=== PATIENT | male | born 2005 | race Two or more races ===

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

== ENCOUNTER 2024-01-03 14:42 | Emergency (ER) | payer BC, MEDICAID ==
[~2024-01-03] VITALS: Ht 170.2 cm; Wt 80.0 kg
--- NOTE | 2024-01-03 15:33 | ED.PDOC ---
Psychiatric HPI Comments A 18 year old presents to the ED with a chief complaint of chest pain and anxiety. Sister states the patient was experiencing confusion and unclear thinking for the past 4 days. Patient lives in [facility] dorms and drove himself to his mother's house due to not feeling well. Sister took the patient's blood pressure this morning and states it was low. The patient states he was drinking ETOH on 12/30/2023. He also states he is currently experiencing chest pain, anxiety, confusion, paranoia, auditory hallucinations, blurry vision, and hard time communicating. He has a past medical history of asthma and anxiety. No other symptoms or other modifying factors present at this time. Chief Complaint: Chest Pain Time Seen by MD: 15:05 Primary Care Provider: UNKNOWN Reviewed Notes: Medications, Allergies Information Source: Patient, Relative (Sibling) Mode of Arrival: Ambulatory Severity of Pain: Moderate Severity of Mental Status: Moderate Severity of Symptoms: Moderate Timing: Days Duration: Since onset Prehospital treatment: Other Presents with: Anxiety, Unclear Thinking History of: Anxiety Quality: Confusion, Hallucinations (auditory) Associated signs and symptoms: Anxiety, Hallucinations, ETOH, Confusion, Other (chest pain) Past Medical History PAST MEDICAL HISTORY: Anxiety, Asthma Surgical History: Denies all surgeries Family History Family History: Family hx of DM, Family hx of Cancer, Family hx of heart addison Social History Smoker: Non-Smoker Alcohol: Occasionally Drugs: Denies Drug Use Lives In: Home Constitutional: denies: chills, diaphoresis, fatigue, fever, malaise, sweats, weakness, others EENTM: denies: blurred vision, double vision, ear bleeding, ear discharge, ear drainage, ear pain, ear ringing, eye pain, eye redness, hearing loss, mouth pain, mouth swelling, nasal discharge, nose bleeding, nose congestion, nose pain, photophobia, tearing, throat pain, throat swelling, voice changes, others Respiratory: denies: cough, hemoptysis, orthopnea, SOB at rest, shortness of breath, SOB with excertion, stridor, wheezing, others Cardiovascular: denies: chest pain, dizzy spells, diaphoresis, Dyspnea on exertion, edema, irregular heart beat, left arm pain, lightheadedness, palpitations, PND, syncope, others Gastrointestinal: denies: abdomen distended, abdominal pain, blood streaked bowels, constipated, diarrhea, dysphagia, difficulty swallowing, hematemesis, melena, nausea, poor appetite, poor fluid intake, rectal bleeding, rectal pain, vomiting, others Genitourinary: denies: burning, dysuria, flank pain, frequency, hematuria, incontinence, penile discharge, penile sore, pain, testicle pain, testicle swelling, urgency, others Neurological: denies: dizziness, fainting, headache, left sided numbness, left sided weakness, numbness, paresthesia, pre-existing deficit, right sided numbness, right sided weakness, seizure, speech problems, tingling, tremors, weakness, others Musculoskeletal: denies: back pain, gout, joint pain, joint swelling, muscle pain, muscle stiffness, neck pain, others Integumetry: denies: bruises, change in color, change in hair/nails, dryness, laceration, lesions, lumps, rash, wounds, others Allergic/Immunocompromised: denies: Difficulty Healing, Frequent Infections, Hives, Itching, others Hematologic/Lymphatic: denies: anemia, blood clots, easy bleeding, easy bruising, swollen glands, others Endocrine: denies: excessive hunger, excessive sweating, excessive thirst, excessive urination, flushing, intolerance to cold, intolerance to heat, unexplained weight gain, unexplained weight loss, others Psychiatric: denies: anxiety, bipolar disorder, depression, hopeless, panic disorder, schizophrenia, sleepless, suicidal, others All Other Systems: Reviewed and Negative Physical Exam General Appearance: No Apparent Distress HEENT: Normal ENT Inspection, Pharynx Normal, TMs Normal Neck: Full Range of Motion, Non-Tender, Normal, Normal Inspection Respiratory: Chest Non-Tender, Lungs Clear, No Accessory Muscle Use, No Respiratory Distress, Normal Breath Sounds Cardiovascular: No Edema, No JVD, No Murmur, No Gallop, Normal Peripheral Pulses, Regular Rate/Rhythm Breast Exam: Deferred Gastrointestinal: No Organomegaly, Non Tender, No Pulsatile Mass, Normal Bowel Sounds, Soft Genitalia: Deferred Pelvic: Deferred Rectal: Deferred Extremities: No calf tenderness, Normal capillary refill, Normal inspection, Normal range of motion, Non-tender, No pedal edema Musculoskeletal : Apperance: Normal Neurologic: Alert, lean sensei II-XII nml as Tested, No Motor Deficits, No Sensory Deficits, Other (The patient has a flat affect and is still stating that he hear some voices) Cerebellar Function: Normal Reflexes: Normal Skin: Dry, Normal Color, Warm Lymphatic: No Adenopathy EKG EKG : Pulse Rate (adult): 66 [place]: Normal Cardiac Rhythm: NSR (72 bpm) Was a procedure done? Was a procedure done?: No Psych Differential Dx Psych. Differential Dx: Anxiety, Panic Disorder, Schizoprenia X-Ray, Labs, Meds, VS Vital Signs Date Time Temp Pulse Resp B/P (MAP) Pulse Ox O2 Delivery O2 Flow Rate FiO2 01/03/24 17:46 98.0 66 18 100/44 (62) 98 98.0 01/03/24 15:21 98.0 70 17 118/49 (72) 99 01/03/24 15:18 72 Lab Test 01/03/24 16:03 01/03/24 15:18 01/03/24 15:15 Range/Units Urine Color Light-yellow Yellow Urine Clarity Clear Clear Urine pH 7.0 5.0-9.0 Urine Specific [place] 1.014 1.001-1.035 Urine Protein Negative Negative Urine Ketones Negative Negative Urine Blood Negative Negative /uL Urine Nitrite Negative Negative Urine Bilirubin Negative Negative Urine Urobilinogen Normal Negative mg/dL Urine Leukocyte Esterase Negative Negative /uL Urine RBC <1 0 - 3 /hpf Urine WBC <1 0 - 3 /hpf Urine Squamous Epithelial Cells None seen <5 /hpf Urine Bacteria None seen None Seen /hpf Urine Glucose Normal Normal mg/dL Urine Opiates Screen Neg NEGATIVE Urine Fentanyl Screen Neg NEGATIVE Urine Barbiturates Screen Neg NEGATIVE Urine Phencyclidine Screen Neg NEGATIVE Urine Amphetamines Screen Neg NEGATIVE Urine Benzodiazepines Screen Neg NEGATIVE Urine Cocaine Screen Neg NEGATIVE Urine Cannabinoids Screen Neg NEGATIVE White Blood Count 6.7 4.4-10.8 10^3/uL Red Blood Count 4.83 4.5-5.90 10^6/uL Hemoglobin 15.6 13.5-17.5 g/dL Hematocrit 44.1 41.0-53.0 % Mean Corpuscular Volume 91.4 80.0-100.0 fL Mean Corpuscular Hemoglobin 32.3 H 28.0-32.0 pg Mean Corpuscular Hemoglobin Concent 35.3 32.0-36.0 g/dL Red Cell Distribution Width 13.1 11.8-14.3 % Platelet Count 239 140-450 10^3/uL Mean Platelet Volume 7.8 6.9-10.8 fL Neutrophils (%) (Auto) 61.9 37.0-80.0 % Lymphocytes (%) (Auto) 30.7 10.0-50.0 % Monocytes (%) (Auto) 5.0 0.0-12.0 % Eosinophils (%) (Auto) 2.1 0.0-7.0 % Basophils (%) (Auto) 0.3 0.0-2.0 % Neutrophils # (Auto) 4.1 1.6-8.6 10 ^3/uL Lymphocytes # (Auto) 2.0 0.4-5.4 10 ^3/uL Monocytes # (Auto) 0.3 0-1.3 10 ^3/uL Eosinophils # (Auto) 0.1 0-0.8 10 ^3/uL Basophils # (Auto) 0 0-0.2 10 ^3/uL Nucleated Red Blood Cells 0.0 % Sodium Level 141 136-145 mmol/L Potassium Level 4.0 3.5-5.1 mmol/L Chloride Level 106 98-107 mmol/L Carbon Dioxide Level 29 20-31 mmol/L Anion Gap 6 5-15 Blood Urea Nitrogen 10 9-23 mg/dL Creatinine 0.87 0.700-1.30 mg/dL Glomerular Filtration Rate Calc 127 >90 mL/min BUN/Creatinine Ratio 11.5 10.0-20.0 Serum Glucose 99 74-106 mg/dL Calcium Level 10.0 8.7-10.4 mg/dL Plasma/Serum Blood Alcohol < 3.0 <10 mg/dL POC Glucose 92 70-106 mg/dl PROCEDURE(s): HWOCT - HEAD WITHOUT CONTRAST IMPRESSION: No CT evidence of acute intracranial abnormality. The CBC and chemistry panel are within normal limits The alcohol level is negative The urine tox is negative The urine test is negative for any infection At this time we are going to get a telemedicine psychiatry consult. We are concerned that the patient was hearing voices At this time, the patient will remain in the emergency department's until the consult is completed. The patient was being started on Abilify 5 mg q.a.m. The patient was to follow up as an outpatient therapy The patient will return to the emergency department's condition worsens. Images Reviewed?: Images reviewed and evaluated by me Time of 1ST Reevaluation: 15:35 Reevaluation 1ST: Unchanged Patient Education/Counseling: Diagnosis, Treatment, Prognosis, Need For Follow Up Family Education/Counseling: Diagnosis, Treatment, Prognosis, Need For Follow Up Departure 1 Departure Time of Disposition: 17:17 Impression: Primary Impression: Confusion Additional Impression: Auditory hallucinations Disposition: 30 STILL A PATIENT Condition: Fair e-Prescriptions Aripiprazole (Abilify) 2 Mg Tab 5 MG PO QAM for 20 Days, #20 TAB Prov: VALENTINE STEIN MD 01/03/24 Discharged With: Self, Relative (Sibling) Critical Care Note Critical Care Time?: No Stability Stability form required: No Heart Score Heart Score: Heart Score Response (Comments) Value History N/A 0 EKG N/A 0 Age N/A 0 Risk Factors N/A 0 Troponin N/A 0 Total 0 I personally scribed for VALENTINE STEIN MD ([email or web address]) on 01/03/24 at 15:33. Electronically submitted by Preeti Gann ([email or web address]). I personally scribed for VALENTINE STEIN MD ([email or web address]) on 01/03/24 at 16:04. Electronically submitted by Preeti Gann ([email or web address]). VALENTINE STEIN MD Jan 03, 2024 15:33
[2024-01-03 15:36] LABS: Basophils # (auto) 0 10 ^3/uL (0-0.2); Basophils % (auto) 0.3 % (0.0-2.0); Eosinophils # (auto) 0.1 10 ^3/uL (0-0.8); Eosinophils % (auto) 2.1 % (0.0-7.0); Hematocrit 44.1 % (41.0-53.0); Hemoglobin 15.6 g/dL (13.5-17.5); Lymphocytes % (auto) 30.7 % (10.0-50.0); Mean Corpuscular Hemoglobin 32.3 pg (28.0-32.0); Mean Corpuscular Hgb Conc. 35.3 g/dL (32.0-36.0); Mean Corpuscular Volume 91.4 fL (80.0-100.0); Monocytes # (auto) 0.3 10 ^3/uL (0-1.3); Neutrophils # (auto) 4.1 10 ^3/uL (1.6-8.6); Neutrophils % (auto) 61.9 % (37.0-80.0); Platelet Count (auto) 239 10^3/uL (140-450); Red Blood Cells 4.83 10^6/uL (4.5-5.90); Red Cell Distribution Width 13.1 % (11.8-14.3); White Blood Cell 6.7 10^3/uL (4.4-10.8)
--- NOTE | 2024-01-03 15:50 | DVH ---
CLINICAL INFORMATION: 18 years old, Male; acute loss of consciousness. TECHNIQUE: Axial imaging was obtained through the brain without contrast. Coronal and sagittal refor matted images were obtained, reviewed, and stored. Images were reviewed in brain and bone windows. A ll CT scans at this medical facility are performed using dose modulation techniques as appropriate to a performed exam including the following: Automated exposure control was utilized; adjustment of the MA and/or KV according to patient size; and use of iterative reconstruction technique. CTDIvol = 53.73 mGy DLP = 970.59 mGy-cm COMPARISON: None FINDINGS: There is no acute intracranial hemorrhage or extraaxial fluid collection. No mass effect o r midline shift. The ventricles and sulci are within normal limits in size for age. Basal cisterns a re patent. The calvarium is unremarkable. Paranasal sinuses and mastoid air cells are clear. IMPRESSION: No CT evidence of acute intracranial abnormality.
[2024-01-03 15:55] LABS: Chloride 106 mmol/L (98-107); Sodium 141 mmol/L (136-145)
[2024-01-03 15:56] LABS: Anion Gap 6 (5-15); Carbon Dioxide 29 mmol/L (20-31)
[2024-01-03 16:01] LABS: BUN/Creatinine Ratio 11.5 (10.0-20.0); Blood Urea Nitrogen 10 mg/dL (9-23); Glucose 99 mg/dL (74-106)
[2024-01-03 16:02] LABS: Blood Alcohol < 3.0 mg/dL (<10)
[2024-01-03 16:05] LABS: Urine Bacteria None Seen /hpf (None Seen)
[2024-01-03 16:23] LABS: Urine Blood Negative /uL (Negative); Urine Clarity Clear (Clear); Urine Color Light-Yellow (Yellow); Urine Protein, UAD Negative (Negative); Urine Specific Gravity 1.014 (1.001-1.035); Urine Urobilinogen Normal (Negative); Urine WBC <1 /hpf (0 - 3)
[2024-01-03 16:29] LABS: Amphetamine Screen, Urine Neg (NEGATIVE); Benzodiazephine Screen, Urine Neg (NEGATIVE)
[2024-01-03 16:30] LABS: Barbiturate Scree,Urine Neg (NEGATIVE); Cannabinoid Screen, Urine Neg (NEGATIVE); Cocaine Screen, Urine Neg (NEGATIVE); Opiate Scree,Urine Neg (NEGATIVE); Phencyclidine Screen, Urine Neg (NEGATIVE)
[2024-01-03] MEDS ORDERED: ARIP2TAB PO (18:17)
--- NOTE | 2024-01-03 18:24 | DVHINCON2 ---
Date of Service if different f: Jan 03, 2024 Time of Service: 17:30 Consultation ([facility]) Consulting Physician: MATEUS CAMPOS MD Labs Laboratory Tests Test 01/03/24 15:15 01/03/24 15:18 01/03/24 16:03 Bedside Glucose 92 mg/dl (70-106) White Blood Count 6.7 10^3/uL (4.4-10.8) Red Blood Count 4.83 10^6/uL (4.5-5.90) Hemoglobin 15.6 g/dL (13.5-17.5) Hematocrit 44.1 % (41.0-53.0) Mean Corpuscular Volume 91.4 fL (80.0-100.0) Mean Corpuscular Hemoglobin 32.3 pg (28.0-32.0) Mean Corpuscular Hemoglobin Concent 35.3 g/dL (32.0-36.0) Red Cell Distribution Width 13.1 % (11.8-14.3) Platelet Count 239 10^3/uL (140-450) Mean Platelet Volume 7.8 fL (6.9-10.8) Neutrophils (%) (Auto) 61.9 % (37.0-80.0) Lymphocytes (%) (Auto) 30.7 % (10.0-50.0) Monocytes (%) (Auto) 5.0 % (0.0-12.0) Eosinophils (%) (Auto) 2.1 % (0.0-7.0) Basophils (%) (Auto) 0.3 % (0.0-2.0) Neutrophils # (Auto) 4.1 10 ^3/uL (1.6-8.6) Lymphocytes # (Auto) 2.0 10 ^3/uL (0.4-5.4) Monocytes # (Auto) 0.3 10 ^3/uL (0-1.3) Eosinophils # (Auto) 0.1 10 ^3/uL (0-0.8) Basophils # (Auto) 0 10 ^3/uL (0-0.2) Nucleated Red Blood Cells 0.0 % Sodium Level 141 mmol/L (136-145) Potassium Level 4.0 mmol/L (3.5-5.1) Chloride Level 106 mmol/L (98-107) Carbon Dioxide Level 29 mmol/L (20-31) Anion Gap 6 (5-15) Blood Urea Nitrogen 10 mg/dL (9-23) Creatinine 0.87 mg/dL (0.700-1.30) Glomerular Filtration Rate Calc 127 mL/min (>90) BUN/Creatinine Ratio 11.5 (10.0-20.0) Serum Glucose 99 mg/dL (74-106) Calcium Level 10.0 mg/dL (8.7-10.4) Plasma/Serum Blood Alcohol < 3.0 mg/dL (<10) Urine Color Light-yellow (Yellow) Urine Clarity Clear (Clear) Urine pH 7.0 (5.0-9.0) Urine Specific [place] 1.014 (1.001-1.035) Urine Protein Negative (Negative) Urine Ketones Negative (Negative) Urine Blood Negative /uL (Negative) Urine Nitrite Negative (Negative) Urine Bilirubin Negative (Negative) Urine Urobilinogen Normal mg/dL (Negative) Urine Leukocyte Esterase Negative /uL (Negative) Urine RBC <1 /hpf (0 - 3) Urine WBC <1 /hpf (0 - 3) Urine Squamous Epithelial Cells None seen /hpf (<5) Urine Bacteria None seen /hpf (None Seen) Urine Glucose Normal mg/dL (Normal) Urine Opiates Screen Neg (NEGATIVE) Urine Fentanyl Screen Neg (NEGATIVE) Urine Barbiturates Screen Neg (NEGATIVE) Urine Phencyclidine Screen Neg (NEGATIVE) Urine Amphetamines Screen Neg (NEGATIVE) Urine Benzodiazepines Screen Neg (NEGATIVE) Urine Cocaine Screen Neg (NEGATIVE) Urine Cannabinoids Screen Neg (NEGATIVE) Appearance: Stated age Psychomotor activity: WNL, Calm Behavioral: Cooperative Eye contact: Appropriate Speech: WNL Affect: Appropriate, Mood Congruent Mood: Anxious Thought processes: Linear/Goal-directed Thought content: WNL Suicidal ideations: Absent Homicidal ideations: Absent Orientation: Person, Place, Time, Situation Memory intact: Recent Intellect: Average Abstractability: WNL Concentration: Adequate Attention: Adequate Judgement: WNL Insight: Fair Vitals Vital Signs Date Time Temp Pulse Resp B/P (MAP) Pulse Ox O2 Delivery O2 Flow Rate FiO2 01/03/24 15:21 98.0 70 17 118/49 (72) 99 Treatment plan discussed: With staff Medication adjusted: Yes Labs ordered: No Psychotherapy provided: No Type: Voluntary History of Present Illness Reason for Consult : psychiatric evaluation for paranoia and confusion. PER ED PHYSICIAN: A 18 year old presents to the ED with a chief complaint of chest pain and anxiety. Sister states the patient was experiencing confusion and unclear thinking for the past 4 days. Patient lives in [facility] dorms and drove himself to his mother's house due to not feeling well. Sister took the patient's blood pressure this morning and states it was low. The patient states he was drinking ETOH on 12/30/2023. He also states he is currently experiencing chest pain, anxiety, confusion, paranoia, auditory hallucinations, blurry vision, and hard time communicating. He has a past medical history of asthma and anxiety. No other symptoms or other modifying factors present at this time. PSYCHIATRIST HPI: The patient was seen and evaluated at [facility] ED via telepsychiatry platform. 18 yr old male c/o feeling confused and having difficulty focusing since attending a Halloween alliance party four days ago. He stated he drank alcohol and got intoxicated, but denied using other substances. He stated he was feeling fine before the alliance party, then the last few days he has been having difficulty focusing on his studies and paying attention. He reported feeling paranoid and anxious. He said this happened to him about a year ago and it last a week, then he snapped back to his normal self. He said he has felt like things are not real lately and feels his vision has been a little blurry and he is having difficulty focusing on things. He denied having SI/HI/AVH. Past Psychiatric History : Saw a therapist in the past. No h/o being diagnosed with mental illness, hospitalization or suicide attempts. Current medications: None Substance use: infrequent alcohol use. Denied using tobacco, MJ or other substances. Social History : Lives in dorm at [facility]. 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 Raised in [place] and graduated [employer]. Diagnosis: UNSPECIFIED PSYCHOTIC DISORDER Formulation: This 18 yr old male appears to suffer from paranoia and anxiety which may be due to ingestion of a substance that he is unaware of at a halloween alliance party or due to anxiety. He may benefit from starting a low dose of aripiprazole and continuing in outpatient therapy. He does not warrant inpatient hospitalization. Plan: 1. Safety. The patient is a low risk for harm and may be managed as an outpatient. 2. Legal-Voluntary. 3. Medications : risks, benefits, adverse effects of the following were discussed and recommend starting Abilify 5mg qam Please prescribe #30 with one refill 4. Follow up with outpatient mental health for medication management and therapy. 5 Case discussed with ED RN Frank 6. Please contact psychiatry for further follow up or reevaluation as desired. Assessment/Diagnosis/Plan Reviewed: Labs, Medications, Previous Orders MATEUS CAMPOS MD Jan 03, 2024 17:26
[2024-01-03 18:30] VITALS: BP 114/49; PULSE 80; RESP 16; TEMP 98.1; O2SAT 99
--- NOTE | 2024-01-04 13:40 | ECG ---
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
== END 2024-01-03 18:40 | disposition home or self-care (01) ==
LOC: ER 14:42
DX: R41.0 Disorientation, unspecified (principal); F22 Delusional disorders; F41.9 Anxiety disorder, unspecified; J45.909 Unspecified asthma, uncomplicated; Z79.899 Other long term (current) drug therapy
CPT/HCPCS: 36415; 70450; 80048; 80307; 80320; 81001; 82962; 85025; 93005